=== PATIENT | male | born 1960 | race Caucasian/White ===

== ENCOUNTER 2024-06-16 11:44 | Emergency (ER) | payer OTHER, SELFPAY ==
[2024-06-16 12:22] LABS: Absolute Basophils 0.1 K/uL (0-0.5); Absolute Eosinophils 0.1 K/uL (0-0.5); Absolute Lymphocytes (CBC) 2.4 K/uL (0.7-4.9); Absolute Monocytes 1.3 K/uL (0.1-1.3); Absolute Neutrophil 8.4 K/uL (1.8-8.0); Basophils % 0.8 % (0-1.3); Eosinophils % 0.7 % (0-4.4); Hematocrit 48.3 % (39.6-49.0); Hemoglobin 16.2 g/dL (13.6-17.9); Lymphocytes % 19.8 % (15.3-44.8); MCH 30.7 pg (27.0-35.0); MCHC 33.5 g/dL (32.0-36.0); MCV 91.4 fL (80-100); MPV 6.9 fL (7.6-11.3); Monocytes % 10.6 % (3.3-12.3); Neutrophils % 68.1 % (41.7-73.7); Platelets 377 thou/uL (152-406); RBC Red Blood Cell Count 5.29 M/uL (4.33-5.43); Red Cell Distribution Width 13.1 % (12.1-15.2)
[2024-06-16 12:39] LABS: Anion Gap 6.9 mEq/L (5.0-15.0); Potassium 3.9 mEq/L (3.5-5.1)
--- NOTE | 2024-06-16 13:53 | RAD REPORT ---
EXAM: CT Soft Tissue Neck W/Contr INDICATION: [facility] n/a left neck swelling, difficulty swallowing Bed Name: 7 TECHNIQUE: Helical CT examination of the neck with IV contrast. Sagittal and coronal reformations wer e generated. This exam was performed according to our departmental dose-optimization program, which includes automated exposure control, adjustment of the mA and/or kV according to patient size and/or use of iterative reconstruction technique. COMPARISON: None. FINDINGS: Mucosal spaces: Large fungating heterogeneously enhancing mass centered on the posterior oropharyngea l and hypopharyngeal wall and right lateral oropharyngeal wall extending past the level of the hypopharynx. The mass measures up to 6 cm in greatest transverse dimension at the level of the suprag lottic larynx, and 9.7X 4.1 cm in greatest CC and AP dimensions, with its craniocaudal extent starting from the level of the tip of the uvula, to the level of the mid cricoid cartilage. Another f ungating component extends further caudally to this, within the lumen of the cervical esophagus, measuring 2.7 cm in greatest cc extent, and 2.5 x 1.9 cm in greatest axial dimensions. The mass effac es the right vallecula and pyriform sinus. There is involvement of the aryepiglottic folds more so on the right, however the lateral fat planes at the level of the glottis and the anterior commissure appears spared. The base of the epiglottis does not appear to be involved although the epiglottic leaflet is displaced anteriorly. There is involvement of the retropharyngeal space and potential invo lvement of bilateral carotid spaces, with effacement of the medial fat planes bilaterally. Parapharyngeal spaces and fat planes along the skull base do not appear involved. Lymph Nodes: Mildly prominent bilateral level 2A lymph nodes, largest on the right measuring 6 mm in short axis. No bulky adenopathy. Salivary Glands: Unremarkable. Thyroid Gland: Thyroid lobes are displaced laterally at the right upper aspect, without evidence of d iscrete involvement. Tumor components approximates the right cornu and the upper margin of the thyroid cartilage on the right, without discrete evidence of cartilage erosion. Included Intracranial Structures: Normal Included Orbits: Normal Paranasal Sinuses: Predominantly clear Tympanomastoid Cavities: Normal Vascular Structures: Normal Osseous Structures: No acute osseous abnormality. Extensive carious changes with periodontal lucencies and collections. Opacification of the maxillary sinuses more so on the right, could potentially be odontogenic nature. Included Lung Apices: Normal Left posterior cervical subcutaneous ovoid 4.6 cm structure most suggestive of a sebaceous cyst. 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 There is involvement of the retropharyngeal space and potential involvement or decreased e ncroachment upon the carotid spaces more so on the right. Mildly prominent bilateral level 2A lymph nodes not exceeding 6 mm in short axis, indeterminate. Dental and periodontal disease as above.
--- NOTE | 2024-06-16 14:22 | EDPHYS ---
Physician Documentation [facility] Name: Chemo Bunch Age: 64 yrs Sex: Male : 1960 Arrival Date: 06/16/2024 Time: 11:44 Bed 7 Private MD: ED Physician Daniel Perkins HPI: 06/16 12:51 This 64 yrs old Male presents to ER via Ambulatory with complaints of Difficulty rn Swallowing, Sore Throat. 12:51 The patient presents with dysphagia. The patient describes throat pain as burning. rn Onset: The symptoms/episode began/occurred 1 month(s) ago. Severity of symptoms: At their worst the symptoms were mild, in the emergency department the symptoms are unchanged. The patient has not experienced similar symptoms in the past. Patient reports at least 1 month of subjective left neck swelling, pain with swallowing. No difficulty breathing. Not improving. Is a smoker and drinker and used to use chewing tobacco so patient is concerned and wants to be evaluated for cancer. No fever or chills. No infectious symptoms. No trauma.. Historical: - Allergies: 11:50 NKA; iw - PMHx: 11:50 Hypertension; iw - PSHx: 11:50 Appendectomy; iw - Immunization history:: Adult Immunizations. - Infectious Disease History:: Denies. - Social history:: Smoking status: Patient reports the use of cigarette tobacco products, smokes one pack cigarettes per day. - Family history:: not pertinent. - Hospitalizations: : No recent hospitalization is reported. ROS: 12:51 Constitutional: Negative for fever, chills, and weight loss, ENT: Positive for pain rn with swallowing Neck: Positive for subjective swelling left neck Cardiovascular: Negative for chest pain, palpitations, and edema, Respiratory: Negative for shortness of breath, cough, wheezing, and pleuritic chest pain, Abdomen/GI: Negative for abdominal pain, nausea, vomiting, diarrhea, and constipation, Back: Negative for injury and pain, MS/Extremity: Negative for injury and deformity, Skin: Negative for injury, rash, and discoloration, Neuro: Negative for headache, weakness, numbness, tingling, and seizure, Exam: 12:51 Constitutional: This is a well developed, well nourished patient who is awake, alert, rn and in no acute distress. Head/Face: Normocephalic, atraumatic. ENT: No intraoral lesions noted. No stridor. Poor dentition. Neck: Mild swelling with lymphadenopathy present in the left anterior neck. No meningismus. No crepitus or other masses. Cardiovascular: Regular rate and rhythm. No pulse deficits. Respiratory: No increased work of breathing, no retractions or nasal flaring. Vital Signs: 11:49 BP 142 / 105; Pulse 92; Resp 18; Temp 97.2; Pulse Ox 97% on R/A; Weight 68.04 kg; iw Height 6 ft. 0 in. ; Pain 9/10; 14:37 BP 140 / 89; Pulse 89; Resp 16; Pulse Ox 96% on R/A; iw 11:49 Body Mass Index 20.34 (68.04 kg, 182.88 cm) iw 11:49 Pain Scale: Adult iw MDM: 11:49 Medical Screening Exam initiated rn 14:19 Differential diagnosis: Pharyngeal or retropharyngeal mass, cancer, malignancy. Data rn reviewed: vital signs, nurses notes, lab test result(s), radiologic studies, CT scan. Management of patient was discussed with the following: Technical Project Lead: Discussed case with Dr. Casper, ENT, states will need follow-up for complex mass as well as chemo, radiation, tissue diagnosis. No indication for transfer emergently at this time.. Counseling: I had a detailed discussion with the patient and/or guardian regarding the historical points, exam findings, and any diagnostic results supporting the discharge/admit diagnosis, lab results, radiology results, the need for outpatient follow up, to return to the emergency department if symptoms worsen or persist or if there are any questions or concerns that arise at home. ED course: No indication for transfer or emergent surgery at this time. In further discussion with patient he states this has been going on for at least 6 months. Can tolerate liquids and pured solids but no longer solid foods. 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 Understands urgency of follow-up and needs diagnosis so he can initiate treatment. All return precautions given and understood. No airway involvement at this time.. 06/16 12:01 Order name: CBC with Diff; Complete Time: 12:42 rn 06/16 12:01 Order name: Basic Metabolic Panel; Complete Time: 12:42 rn 06/16 12:01 Order name: CT Soft Tissue Neck W/contr; Complete Time: 13:55 rn 06/16 12:01 Order name: IV Start; Complete Time: 12:04 rn Administered Medications: No medications were administered Disposition Summary: 06/16/24 14:21 Discharge Ordered Notes: Location: Home rn Problem: an ongoing problem rn Symptoms: are unchanged rn Condition: Stable rn Diagnosis - Localized swelling, mass and lump, neck rn Followup: rn - With: Private Physician - When: As needed - Reason: Recheck today's complaints, Re-evaluation by your physician Discharge Instructions: - Discharge Summary Sheet rn - Throat Cancer rn Forms: - Medication Reconciliation Form rn - Antibiotic transactional attorney - Prescription Opioid Use rn - Patient Portal Instructions rn - Leadership Thank You Letter rn Signatures: Dispatcher [employer] Coty Mcclain, RN Daniel Melton MD MD rn Lewis, Lynsay, RN RN ll1
--- NOTE | 2024-06-16 14:22 | ER ---
Nurse's Notes [facility] Name: Chemo Bunch Age: 64 yrs Sex: Male : 1960 Arrival Date: 06/16/2024 Time: 11:44 Bed 7 Private MD: Diagnosis: Localized swelling, mass and lump, neck Presentation: 06/16 11:49 Chief complaint: Patient states: throat irritation , feels scratchy, started a month iw ago , has gotten worse, it's hard to swallow. Coronavirus screen: At this time, the client does not indicate any symptoms associated with coronavirus-19. Ebola Screen: No symptoms or risks identified at this time. Initial Sepsis Screen: Does the patient meet any 2 criteria? No. Patient's initial sepsis screen is negative. Does the patient have a suspected source of infection? No. Patient's initial sepsis screen is negative. Risk Assessment: Do you want to hurt yourself or someone else? Patient reports no desire to harm self or others. Onset of symptoms was May 2024. 11:49 Method Of Arrival: Ambulatory iw 11:49 Acuity: CHIP 3 iw Historical: - Allergies: 11:50 NKA; iw - PMHx: 11:50 Hypertension; iw - PSHx: 11:50 Appendectomy; iw - Immunization history:: Adult Immunizations. - Infectious Disease History:: Denies. - Social history:: Smoking status: Patient reports the use of cigarette tobacco products, smokes one pack cigarettes per day. - Family history:: not pertinent. - Hospitalizations: : No recent hospitalization is reported. Screenin:11 [facility] ED Fall Risk Assessment (Adult) History of falling in the last 3 months, ll1 including since admission No falls in past 3 months (0 pts) Confusion or Disorientation No (0 pts) Intoxicated or Sedated No (0 pts) Impaired Gait No (0 pts) Mobility Assist Device Used No (0 pt) Altered Elimination No (0 pt) Score/Fall Risk Level 0 - 2 = Low Risk Maintained a safe environment, Hourly rounding (assess needs \T\ fall precautionary measures) done. Abuse screen: Denies threats or abuse. Nutritional screening: No deficits noted. Tuberculosis screening: No symptoms or risk factors identified. Assessment: 12:10 General: Appears in no apparent distress. Behavior is calm, cooperative, appropriate ll1 for age. Pain: Denies pain. Cardiovascular: Denies shortness of breath. EENT: Reports pain when swallowing having to clear throat a lot. 12:12 Respiratory: Airway is patent Respiratory effort is even, unlabored. EENT: Throat is ll1 clear. Vital Signs: 11:49 BP 142 / 105; Pulse 92; Resp 18; Temp 97.2; Pulse Ox 97% on R/A; Weight 68.04 kg; iw Height 6 ft. 0 in. ; Pain 9/10; 14:37 BP 140 / 89; Pulse 89; Resp 16; Pulse Ox 96% on R/A; iw 11:49 Body Mass Index 20.34 (68.04 kg, 182.88 cm) iw 11:49 Pain Scale: Adult iw ED Course: 11:46 Patient arrived in ED. am2 11:49 Daniel Perkins MD is Attending Physician. rn 11:50 Triage completed. iw 11:51 Arm band placed on. iw 11:58 Shanique Woods RN is Primary Nurse. ll1 12:10 Initial lab(s) drawn, by nv, sent to lab. Inserted saline lock: 22 gauge in right ll1 antecubital area, using aseptic technique. Blood collected. Flushed with 10 mL NS. 12:12 Patient has correct armband on for positive identification. Bed in low position. ll1 Provided Education on: ER procedures and process. Cardiac monitoring not applicable on this patient. 13:01 CT Soft Tissue Neck W/contr In Process Unspecified. EDMS 14:37 No provider procedures requiring assistance completed. IV discontinued, intact, iw bleeding controlled, No redness/swelling at site. Pressure dressing applied. Administered Medications: No medications were administered Medication: 12:12 VIS not applicable for this client. ll1 Outcome: 14:21 Discharge ordered by . rn 14:37 Discharged to home ambulatory, iw 14:37 Condition: good 14:37 Discharge instructions given to patient, Instructed on discharge instructions, follow up and referral plans. Demonstrated understanding of instructions, follow-up care, 14:38 Patient left the ED. iw Signatures: Dispatcher [employer] EDMS Coty Joseph RN RN Daniel Perkins MD MD rn Moreno, Amanda am2 Shanique Woods RN RN ll1 Corrections: (The following items were deleted from the chart) 11:51 11:49 BP 142 / 105; Pulse 92bpm; Resp 18bpm; Pulse Ox 97% RA; Temp 97.2F; iw iw
[2024-06-18 16:06] VITALS: BP 140/89; TEMP 97.2; O2SAT 96
== END 2024-06-16 14:38 | disposition home or self-care (01) ==
LOC: ER 11:44
DX: R22.1 Localized swelling, mass and lump, neck (principal); F17.210 Nicotine dependence, cigarettes, uncomplicated
CPT/HCPCS: 85025; 80048; 36415; 70491; 99283; Q9967